=== PATIENT | male | born 1965 | race American Indian/Alaskan Native ===

== ENCOUNTER 2016-09-16 15:00 | Emergency (ER) | payer OTHER ==
[2016-09-16 15:13] VITALS: BP 135/94
[2016-09-16] MEDS ORDERED: NORCO 5/325 PO ONE (18:33)
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
== END 2016-09-16 19:00 | disposition home or self-care (01) ==
LOC: ED 15:00
DX: M62.830 Muscle spasm of back (principal); M79.1 Myalgia; F17.200 Nicotine dependence, unspecified, uncomplicated; V49.49XA Driver injured in collision with other motor vehicles in traffic accident, initial encounter; Y93.9 Activity, unspecified; Y92.9 Unspecified place or not applicable; Y99.9 Unspecified external cause status
CPT/HCPCS: 99282

== ENCOUNTER 2019-06-16 08:10 | Emergency (ER) | payer SELFPAY ==
[2019-06-16 08:15] VITALS: BP 149/105
--- NOTE | 2019-06-16 09:20 | Emergency Department Report ---
ED General Adult HPI - General Chief complaint: Extremity Injury, Upper Stated complaint: ARM/FINGERS PAIN Time Seen by Provider: 06/16/19 08:49 Source: patient Mode of arrival: Ambulatory Limitations: No Limitations - History of Present Illness Initial comments: 54-year-old -British male presents to the emergency room for left arm and hand weakness and tingling to fingers. Patient also complains of right fingertip sparing the thumb is tingly. Patient reports this been going on for 3-4 weeks. Patient denies any recent trauma or falls. 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 Patient denies any pain. She does endorse that he does not drink much water. Patient has no past medical history takes no medications on a daily basis and has no known drug allergies. Onset/Timin -: week(s) - Related Data Previous Rx's Medication Instructions Recorded Last Taken Type Cyclobenzaprine [Flexeril] 10 mg PO TID PRN #15 tablet 09/16/16 Unknown Rx Ibuprofen [Motrin] 600 mg PO Q8H PRN #21 tablet 09/16/16 Unknown Rx Allergies Allergy/AdvReac Type Severity Reaction Status Date / Time No Known Allergies Allergy Unverified 09/16/16 15:08 ED Review of Systems ROS: Stated complaint: ARM/FINGERS PAIN Other details as noted in HPI ED Past Medical Hx - Past Medical History Previous Medical History?: No - Surgical History Past Surgical History?: No - Social History Smoking Status: Current Every Day Smoker Substance Use Type: None - Medications Home Medications: Home Medications Medication Instructions Recorded Confirmed Last Taken Type Cyclobenzaprine [Flexeril] 10 mg PO TID PRN #15 tablet 09/16/16 Unknown Rx Ibuprofen [Motrin] 600 mg PO Q8H PRN #21 tablet 09/16/16 Unknown Rx ED Physical Exam - General Limitations: No Limitations General appearance: alert - Head Head exam: Present: atraumatic - Eye Eye exam: Present: normal appearance - ENT ENT exam: Present: mucous membranes moist - Neurological Exam Neurological exam: Present: alert, oriented X3, normal gait - Psychiatric Psychiatric exam: Present: normal affect, normal mood - Expanded Skin Exam Expanded Description of rash: Present: other (multiple calluses on palms of hands skin is thickened pulses are bilaterally equal capillary refills are intact less than 2 seconds). Absent: tenderness ED Course Vital Signs 06/16/19 08:13 Temperature 97.7 F Pulse Rate 78 Respiratory 18 Rate Blood Pressure 149/105 O2 Sat by Pulse 100 Oximetry ED Medical Decision Making - Lab Data Laboratory Results - last 72 hr 06/16/19 09:03 Sodium 139 Potassium 4.3 Chloride 103.9 Carbon Dioxide 25 Anion Gap 14 BUN 11 Creatinine 0.8 Estimated GFR > 60 BUN/Creatinine Ratio 14 Glucose 98 Calcium 9.3 - Medical Decision Making 54-year-old -British male presents to the emergency room for left arm and hand weakness and tingling to fingers. Patient also complains of right fingertip sparing the thumb is tingly. Patient reports this been going on for 3-4 weeks. Patient denies any recent trauma or falls. 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 She does endorse that he does not drink much water. Patient has no past medical history takes no medications on a daily basis and has no known drug allergies. Patient's electrolytes are stable. Discussed the patient he can follow-up with the neurologist I will place a referral for patient. Critical care attestation.: If time is entered above; I have spent that time in minutes in the direct care of this critically ill patient, excluding procedure time. ED Disposition Clinical Impression: Bilateral finger numbness Disposition: DC-01 TO HOME OR SELFCARE Is pt being admited?: No Does the pt Need Aspirin: No Condition: Stable Referrals: MARYLOU PEREZ MD [Primary Care Provider] - 3-5 Days LALIT KIRBY MD [Referring] - 3-5 Days Forms: Work/School Release Form(ED)
[2019-06-16 09:31] LABS: BUN/Creatinine Ratio 14; Blood Urea Nitrogen 11 mg/dL (9-20); Calcium 9.3 mg/dL (8.4-10.2); Hemolysis Index 8
== END 2019-06-16 09:56 | disposition home or self-care (01) ==
LOC: ED 08:10
DX: R20.0 Anesthesia of skin (principal); F17.200 Nicotine dependence, unspecified, uncomplicated; Z79.1 Long term (current) use of non-steroidal anti-inflammatories (NSAID); Z79.899 Other long term (current) drug therapy
CPT/HCPCS: 36415; 80048

== ENCOUNTER 2020-12-19 09:11 | Emergency (ER) | payer SELFPAY | END 2020-12-19 09:50 | disposition left against medical advice (07) | LOC: ED 09:11 | DX: H57.89 Other specified disorders of eye and adnexa (principal); Z53.21 Procedure and treatment not carried out due to patient leaving prior to being seen by health care provider ==